=== PATIENT | male | born 1945 | race Caucasian/White ===

== ENCOUNTER 2017-03-14 15:30 | Emergency (ER) | payer MEDICARE ==
[2017-03-14 15:42] VITALS: BP 182/91
--- NOTE | 2017-03-14 15:53 | UC ---
Skin Complaint HPI - HPI Summary HPI Summary: 71 y/o male presents to the urgent care c/o of a splinter in his RT middle finger after unloading some logs last Saturday. Pt reports he tried to take it ou, but it went deeper. Today his finger is turning red and mildly painful. Patient denies SOB, fever, chest pain, N/V.D. Patient has PMX of HTN and he can 't recall his medication. Today's BP:182/91. Pt reports he monitors his BP periodically and it has been controlled. Pt states he is uptodate with Tetanus vaccine last dose in 2013 - History of Current Complaint Chief Complaint: UCUpperExtremity Time Seen by Provider: 03/14/17 15:44 Stated Complaint: FB IN FINGER Hx Obtained From: Patient Onset/Duration: Sudden Onset, Lasting Days, Still Present Skin Exposure Onset/Duration: Days Ago Timing: Constant Onset Severity: Mild Current Severity: Mild Pain Intensity: 2 Pain Scale Used: 0-10 Numeric Location: Other - RT 3 digit with a splinter and sorrounding redness and swelling Character: Painful Aggravating: Touch Alleviating: Nothing Associated Signs & Symptoms: Negative: Fever - Allergy/Home Medications Allergies/Adverse Reactions: Allergies Allergy/AdvReac Type Severity Reaction Status Date / Time Sulfa Antibiotics Allergy Rash Verified 03/14/17 15:46 penicllin Allergy Rash Uncoded 03/14/17 15:46 Home Medications: Home Medications Acetaminophen [Tylenol] 03/14/17 [History Confirmed 03/14/17] Alprazolam [Xanax Xr] 03/14/17 [History] Aspirin TAB* [Aspirin 325 MG TAB*] 03/14/17 [History] Benazepril HCl [Lotensin-] 03/14/17 [History] Omeprazole CAP* [Prilosec CAP* 20 MG] 03/14/17 [History] Sertraline* [Zoloft*] 03/14/17 [History] Testosterone [Androgel] 03/14/17 [History] Review of Systems Constitutional: Negative Skin: Other - RT 3rd digit with a splinter Eyes: Negative ENT: Negative Respiratory: Negative Cardiovascular: Negative Gastrointestinal: Negative Genitourinary: Negative Motor: Negative Neurovascular: Negative Musculoskeletal: Negative Neurological: Negative Psychological: Negative All Other Systems Reviewed And Are Negative: Yes PMH/Surg Hx/FS Hx/Imm Hx Cardiovascular History: Hypertension Psychological History: Anxiety - Surgical History Surgical History: Yes Surgery Procedure, Year, and Place: Knee. Gallbladder - Social History Alcohol Use: None Substance Use Type: None Smoking Status (MU): Never Smoked Tobacco - Immunization History Most Recent Tetanus Shot: 2013 Physical Exam Triage Information Reviewed: Yes Appearance: Well-Appearing, No Pain Distress, Well-Nourished, Thin Vital Signs: Initial Vital Signs Temp 98.1 F 03/14/17 15:37 Pulse 85 03/14/17 15:37 Resp 20 03/14/17 15:37 BP 182/91 03/14/17 15:37 Pulse Ox 95 03/14/17 15:37 Vital Signs Reviewed: Yes Eye Exam: Normal Eyes: Positive: Conjunctiva Clear ENT: Positive: Normal ENT inspection, Hearing grossly normal, Pharynx normal, TMs normal Neck exam: Normal Neck: Positive: Supple, Nontender, No Lymphadenopathy Respiratory Exam: Normal Respiratory: Positive: Chest non-tender, Lungs clear, Normal breath sounds Cardiovascular Exam: Normal Cardiovascular: Positive: RRR, No Murmur, Pulses Normal Abdominal Exam: Normal Abdomen Description: Positive: Nontender, No Organomegaly, Soft Bowel Sounds: Positive: Present Musculoskeletal Exam: Normal Neurological Exam: Normal Psychological Exam: Normal Skin: Positive: Other - RT 3rd digit ventral side with a splinter, sorrounding erythema, mildly swollen, mild tenderness on palpation. Full ROM of the digit and hand. postive capilary refill and sensation, RT 2 digit with small puncture wound with mild erythema, no pus. Course/Dx - Course Course Of Treatment: Foreign Body in the 3rd digit of RT hand:RT 3rd digit ventral side with a splinter, sorrounding erythema, mildly swollen, mild tenderness on palpation. Full ROM of the digit and hand. postive capilary refill and sensation, RT 2 digit with small puncture wound with mild erythema, no pus. Wound cleaned and Splinter removal with o anesthetic and small 25G needle. PT tolerated well procedure and Bacitracin ointment placed on wound. Patient advised to place bacitracin x 7 days. Pt understood and agreed. - Differential Diagnoses - Skin Complaint Differential Diagnoses: Cellulitis, Contact Dermatitis, Foreign Body - Diagnoses Provider Diagnoses: soft tissue foreign body of the RT had 3rd digit. Discharge - Discharge Plan Condition: Stable Disposition: HOME Prescriptions: Bacitracin OINTMENT* 1 applic TOPICAL BID #1 tube Patient Education Materials: Soft Tissue Foreign Body (ED) Referrals: Petros Ponce MD [Primary Care Provider] - Additional Instructions: please apply antibiotic ointment as directed. If signs of infection please return to the urgent care or PCP for further evaluation and treatment. Please decrease salt intake and f/u with PCP for control on hypertension as instructed
== END 2017-03-14 16:24 | disposition home or self-care (01) ==
LOC: UCEAST 15:30
DX: S60.452A Superficial foreign body of right middle finger, initial encounter (principal); W45.8XXA Other foreign body or object entering through skin, initial encounter; I10 Essential (primary) hypertension; F41.9 Anxiety disorder, unspecified; Z88.1 Allergy status to other antibiotic agents; Z88.0 Allergy status to penicillin; Z79.82 Long term (current) use of aspirin
CPT/HCPCS: 99212; G0463